=== PATIENT | female | born 1975 | race Caucasian/White ===

== ENCOUNTER 2016-10-04 10:01 | Emergency (ER) | payer OTHER ==
[~2016-10-04] VITALS: Ht 172.7 cm; Wt 94.0 kg
[~2016-10-04 10:01] MED LIST: ACETAMINOPHEN500 MG PO; ANAPROX DS550 M1 PO; ASPIR-LOW81 MG PO; AZITHROMYCIN250 MG PO; AZITHROMYCIN250 MG1 PO; BACTRIM,SEPT1 TABLET PO; BENTYL20 MG PO; CARAFATE1 GM PO; DAILY VITAMIN1 EAC4 PO; ENDOCET 5-3251 EACH PO; FIORICET,ESG1 TABLET PO; FISH OIL 1,0001 EAC7 PO; FISH OIL SOFTG1 EAC1 PO; FLEXERIL10 MG PO; GLYBURIDE2.5 MG PO; IBUPROFEN600 MG PO; IBUPROFEN800 MG PO; KEFLEX500 MG PO; METHYLPREDNISOLO4 M1 PO; MIRALAX17 GM PO; NAPROXEN500 MG PO; NITROSTAT0.4 MG SL; NORCO 5/3251 TABLET PO; ONE-A-DAY WOME1 EAC1 PO; PANTOPRAZOLE SO40 MG PO; PERCOCET 5/31 TABLET PO; PHENERGAN-CODE120 ML PO; PREDNISONE20 MG PO; PRENATAL TABLE1 EAC3 PO; PROTONIX40 MG PO; REGLAN10 MG PO; ROBITUSSIN AC,T10 ML PO; TESSALON PERLE100 MG PO; TOPAMAX100 MG PO; TOPIRAMATE200 MG PO; TYLENOL REGULA325 MG PO; TYLENOL WITH C1 EACH PO; ULTRAM50 MG PO; VENTOLIN HFA18 GM IH; VITAMIN B PO; VITAMIN D31000 UNI2 PO; ZOFRAN ODT4 MG PO; ZOFRAN4 MG PO; ZOMIG PO; ZOMIG5 MG PO; benadryl
[2016-10-04 11:05] LABS: HEMATOCRIT 48.2 % (36.0-46.0); MCH 29.4 PG (29.0-34.0); MCHC 33.2 G/DL (30.0-36.0); MCV 88.6 FL (83-99); MEAN PLAT.VOLUME 10.6 uM^3 (9.5-12.4); PLATELET COUNT 257 K/uL (156-360); RBC DIS.WIDTH-CV 13.2 % (11.8-14.6); RBC DIS.WIDTH-SD 42.7 % (39-53); RED BLOOD COUNT 5.44 M/uL (3.80-5.20); WHITE BLOOD COUNT 10.1 K/uL (4.1-10.2)
[2016-10-04 11:20] LABS: CHLORIDE 105 mEq/L (99-109); POTASSIUM 3.6 mEq/L (3.7-5.4); SODIUM 139 mEq/L (136-147)
[2016-10-04 11:22] LABS: GLUCOSE 99 mg/dL (70-99)
[2016-10-04 11:23] LABS: ANION GAP 10 MEQ/L (2-14)
[2016-10-04 11:24] LABS: TOTAL BILIRUBIN 0.5 mg/dL (0.0-1.0)
[2016-10-04 11:26] LABS: ALKALINE PHOSPHATASE 93 IU/L (3-129); GFR ESTIMATE (CALCULATED) > 59 mL/min/
[2016-10-04 11:27] LABS: UREA NITROGEN (BUN) 9 mg/dL (9-23)
[2016-10-04 11:34] LABS: QUANTITATIVE HCG < 4.0 MIU/ML
[2016-10-04 12:22] LABS: ADD MIUA? YES; BILIRUBIN NEGATIVE; BLOOD NEGATIVE; COLOR YELLOW ((YELLOW)); GLUCOSE (STRIP) NEGATIVE; KETONES NEGATIVE; LEUKOCYTES NEGATIVE; NITRITE NEGATIVE; PROTEIN (STRIP) NEGATIVE; SPECIFIC GRAVITY 1.006 (1.000-1.030); UROBILINOGEN 0.2 MG/DL (0.2-1.0)
[2016-10-04 12:25] LABS: BACTERIA RARE /HPF; EPITHELIAL CELLS 1+ /HPF; MUCUS NONE SEEN /LPF; RED BLOOD CELLS 0-5 /HPF (0-5); UCUL ADDED? NO; WHITE BLOOD CELLS 0-5 /HPF (0-5)
[2016-10-04] MEDS ORDERED: ULTRAM50 MG PO (12:53)
[2016-10-04 13:05] VITALS: BP 126/70
== END 2016-10-04 13:17 | disposition home or self-care (01) ==
LOC: EME 10:01
DX: R10.9 Unspecified abdominal pain (principal); Z87.442 Personal history of urinary calculi; Z87.891 Personal history of nicotine dependence
CPT/HCPCS: 74176; 80053; 81003; 84702; 85027; 99281; 99284; J1885

== ENCOUNTER 2017-02-10 19:54 | Emergency (ER) | payer OTHER ==
[~2017-02-10] VITALS: Ht 172.7 cm; Wt 94.6 kg
[2017-02-10] MEDS ORDERED: FLEXERIL10 MG PO (22:26)
[2017-02-10] MEDS ORDERED: MOTRIN800 MG PO (22:27)
[2017-02-10 22:38] VITALS: BP 152/100
== END 2017-02-10 22:38 | disposition home or self-care (01) ==
LOC: EME 19:54
DX: M62.838 Other muscle spasm (principal); G43.909 Migraine, unspecified, not intractable, without status migrainosus; K21.9 Gastro-esophageal reflux disease without esophagitis; Z87.891 Personal history of nicotine dependence
CPT/HCPCS: 87651 90; 99281; 99284; J1885

== ENCOUNTER 2017-02-28 05:55 | Emergency (ER) | payer OTHER ==
[~2017-02-28] VITALS: Ht 172.7 cm; Wt 94.1 kg
[~2017-02-28 05:55] MED LIST changes: +MOTRIN800 MG PO
[2017-02-28 06:20] LABS: BASOPHIL COUNT 0.1 K/uL (0-0.1); EOSINOPHIL (%) 2.2 % (0-5); EOSINOPHIL COUNT 0.2 K/uL (0-0.3); IMMATURE GRANULOCYTE (%) 0.5 % (0.0-0.7); LYMPHOCYTE COUNT 2.6 K/uL (1.0-2.8); MCHC 34.5 G/DL (30.0-36.0); MCV 86.8 FL (83-99); MEAN PLAT.VOLUME 10.6 uM^3 (9.5-12.4); MONOCYTE (%) 8.6 % (3-12); MONOCYTE COUNT 0.7 K/uL (0-0.8); NEUTROPHIL (%) 57.5 % (45-76); PLATELET COUNT 248 K/uL (156-360); RBC DIS.WIDTH-CV 13.4 % (11.8-14.6); RBC DIS.WIDTH-SD 42.5 % (39-53); RED BLOOD COUNT 5.07 M/uL (3.80-5.20); WHITE BLOOD COUNT 8.7 K/uL (4.1-10.2)
[2017-02-28 07:25] LABS: QUANTITATIVE HCG < 4.0 MIU/ML
[2017-02-28 08:07] LABS: ANION GAP 9 MEQ/L (2-14); CHLORIDE 110 MEQ/L (99-109); POTASSIUM 3.6 MEQ/L (3.7-5.4); SAMPLE HEMOLYSIS CHECK 0; SAMPLE ICTERIC CHECK 0; SAMPLE LIPEMIA CHECK 0; SODIUM 143 MEQ/L (136-147); TOTAL BILIRUBIN 0.3 MG/DL (0.0-1.0)
[2017-02-28 08:13] LABS: ALKALINE PHOSPHATASE 67 IU/L (3-129); GFR ESTIMATE (CALCULATED) > 59 mL/min/; GLUCOSE 94 mg/dL (70-99); LIPASE 24 U/L (1.0-51.0); UREA NITROGEN (BUN) 10 mg/dL (9-23)
[2017-02-28 09:11] LABS: ADD MIUA? NO; BILIRUBIN NEGATIVE; BLOOD NEGATIVE; COLOR YELLOW ((YELLOW)); GLUCOSE (STRIP) NEGATIVE; KETONES NEGATIVE; LEUKOCYTES NEGATIVE; NITRITE NEGATIVE; PROTEIN (STRIP) NEGATIVE; UCUL ADDED? NO; UROBILINOGEN 0.2 MG/DL (0.2-1.0)
[2017-02-28] MEDS ORDERED: TORADOL10 MG PO (09:27)
[2017-02-28] MEDS ORDERED: ZOFRAN ODT4 MG PO (09:27)
[2017-02-28] MEDS ORDERED: NORCO 5/3251 TABLET PO (09:27)
[2017-02-28 09:46] VITALS: BP 120/80
== END 2017-02-28 09:48 | disposition home or self-care (01) ==
LOC: EME 05:55
PROVIDERS: Emergency Medicine
DX: R10.9 Unspecified abdominal pain (principal); R11.2 Nausea with vomiting, unspecified; Z87.442 Personal history of urinary calculi; Z90.49 Acquired absence of other specified parts of digestive tract; Z87.891 Personal history of nicotine dependence
CPT/HCPCS: 74177; 80053; 81003; 83690; 84702; 85025; 87086; 99281; 99285; J2405; J3010; J7030

== ENCOUNTER 2017-03-08 21:32 | Emergency (ER) | payer OTHER ==
[~2017-03-08] VITALS: Ht 172.7 cm; Wt 94.2 kg
[~2017-03-08 21:32] MED LIST changes: +TORADOL10 MG PO
[2017-03-08 22:01] LABS: ADD MIUA? YES; BILIRUBIN NEGATIVE; BLOOD NEGATIVE; COLOR YELLOW ((YELLOW)); GLUCOSE (STRIP) NEGATIVE; KETONES NEGATIVE; LEUKOCYTES NEGATIVE; NITRITE NEGATIVE; PROTEIN (STRIP) NEGATIVE; SPECIFIC GRAVITY 1.013 (1.000-1.030); UROBILINOGEN 0.2 MG/DL (0.2-1.0)
[2017-03-08 22:08] LABS: BACTERIA RARE /HPF; EPITHELIAL CELLS 2+ /HPF; MUCUS NONE SEEN /LPF; RED BLOOD CELLS 0-5 /HPF (0-5); UCUL ADDED? NO; WHITE BLOOD CELLS 0-5 /HPF (0-5)
[2017-03-08 22:37] LABS: HEMATOCRIT 45.7 % (36.0-46.0); MCH 29.4 PG (29.0-34.0); MCHC 33.9 G/DL (30.0-36.0); MCV 86.7 FL (83-99); MEAN PLAT.VOLUME 10.6 uM^3 (9.5-12.4); PLATELET COUNT 277 K/uL (156-360); RBC DIS.WIDTH-CV 13.2 % (11.8-14.6); RBC DIS.WIDTH-SD 41.3 % (39-53); RED BLOOD COUNT 5.27 M/uL (3.80-5.20); WHITE BLOOD COUNT 12.4 K/uL (4.1-10.2)
[2017-03-08 22:45] LABS: CHLORIDE 105 mEq/L (99-109); POTASSIUM 3.9 mEq/L (3.7-5.4); SODIUM 140 mEq/L (136-147)
[2017-03-08 22:47] LABS: GLUCOSE 96 mg/dL (70-99)
[2017-03-08 22:48] LABS: ANION GAP 12 MEQ/L (2-14)
[2017-03-08 22:49] LABS: TOTAL BILIRUBIN 0.3 mg/dL (0.0-1.0)
[2017-03-08 22:51] LABS: ALKALINE PHOSPHATASE 89 IU/L (3-129); GFR ESTIMATE (CALCULATED) > 59 mL/min/
[2017-03-08 22:52] LABS: UREA NITROGEN (BUN) 12 mg/dL (9-23)
[2017-03-08 23:00] LABS: QUANTITATIVE HCG < 4.0 MIU/ML
[2017-03-09 00:44] VITALS: BP 144/91
== END 2017-03-09 00:45 | disposition home or self-care (01) ==
LOC: EME 21:32
DX: R10.9 Unspecified abdominal pain (principal); K21.9 Gastro-esophageal reflux disease without esophagitis; Z87.442 Personal history of urinary calculi; Z90.49 Acquired absence of other specified parts of digestive tract; Z87.891 Personal history of nicotine dependence
CPT/HCPCS: 74176; 80053; 81003; 84702; 85027; 99281; 99284

== ENCOUNTER 2017-05-10 19:39 | Emergency (ER) | payer OTHER ==
[~2017-05-10] VITALS: Ht 172.7 cm; Wt 96.6 kg
[2017-05-10 20:22] LABS: HEMATOCRIT 42.3 % (36.0-46.0); MCH 29.5 PG (29.0-34.0); MCHC 33.8 G/DL (30.0-36.0); MCV 87.4 FL (83-99); MEAN PLAT.VOLUME 10.1 uM^3 (9.5-12.4); PLATELET COUNT 245 K/uL (156-360); RBC DIS.WIDTH-SD 41.5 % (39-53); RED BLOOD COUNT 4.84 M/uL (3.80-5.20); WHITE BLOOD COUNT 10.3 K/uL (4.1-10.2)
[2017-05-10 20:33] LABS: CHLORIDE 105 mEq/L (99-109); POTASSIUM 3.8 mEq/L (3.7-5.4); SODIUM 140 mEq/L (136-147)
[2017-05-10 20:35] LABS: GLUCOSE 91 mg/dL (70-99)
[2017-05-10 20:36] LABS: ANION GAP 13 MEQ/L (2-14)
[2017-05-10 20:39] LABS: GFR ESTIMATE (CALCULATED) > 59 mL/min/
[2017-05-10 20:40] LABS: UREA NITROGEN (BUN) 14 mg/dL (9-23)
[2017-05-10 20:43] LABS: TROP-I INTERPRETATION NEGATIVE; TROPONIN-I < 0.01 ng/mL (0.0-0.30)
[2017-05-10] MEDS ORDERED: PERCOCET 5/31 TABLET PO (21:09)
[2017-05-10] MEDS ORDERED: NAPROSYN500 MG PO (21:09)
[2017-05-10 21:23] VITALS: BP 143/83
== END 2017-05-10 21:35 | disposition home or self-care (01) ==
LOC: EME 19:39
DX: M25.511 Pain in right shoulder (principal); R07.9 Chest pain, unspecified; K21.9 Gastro-esophageal reflux disease without esophagitis; Z87.442 Personal history of urinary calculi; F17.200 Nicotine dependence, unspecified, uncomplicated
CPT/HCPCS: 71020; 80048; 84484; 85027; 93005; 99281; 99284

== ENCOUNTER 2017-06-04 21:45 | Emergency (ER) | payer OTHER ==
[~2017-06-04] VITALS: Ht 172.7 cm; Wt 96.6 kg
[~2017-06-04 21:45] MED LIST changes: +NAPROSYN500 MG PO
[2017-06-04] MEDS ORDERED: FLEXERIL10 MG PO (22:04)
[2017-06-04] MEDS ORDERED: PERCOCET 5/31 TABLET PO (22:04)
[2017-06-04 22:13] VITALS: BP 141/94
== END 2017-06-04 22:14 | disposition home or self-care (01) ==
LOC: EME 21:45
DX: M25.511 Pain in right shoulder (principal); G89.29 Other chronic pain; F17.200 Nicotine dependence, unspecified, uncomplicated
CPT/HCPCS: 99281; 99284

== ENCOUNTER 2017-10-30 18:56 | Emergency (ER) | payer OTHER ==
[~2017-10-30] VITALS: Ht 172.7 cm; Wt 99.4 kg
[2017-10-30 19:29] LABS: HEMATOCRIT 44.3 % (36.0-46.0); HEMOGLOBIN 15.2 G/DL (11.9-15.5); MCH 30.2 PG (29.0-34.0); MCHC 34.3 G/DL (30.0-36.0); MCV 88.1 FL (83-99); PLATELET COUNT 265 K/uL (156-360); RBC DIS.WIDTH-CV 13.2 % (11.8-14.6); RBC DIS.WIDTH-SD 42.5 % (39-53); RED BLOOD COUNT 5.03 M/uL (3.80-5.20); WHITE BLOOD COUNT 12.4 K/uL (4.1-10.2)
[2017-10-30 19:45] LABS: CHLORIDE 105 mEq/L (99-109); POTASSIUM 3.6 mEq/L (3.7-5.4); SODIUM 143 mEq/L (136-147)
[2017-10-30 19:46] LABS: GLUCOSE 92 mg/dL (70-99)
[2017-10-30 19:50] LABS: CREATININE 0.8 mg/dL (0.6-1.3); GFR ESTIMATE (CALCULATED) > 59 mL/min/
[2017-10-30 19:51] LABS: UREA NITROGEN (BUN) 10 mg/dL (9-23)
[2017-10-30 19:53] LABS: TROP-I INTERPRETATION NEGATIVE; TROPONIN-I 0.03 ng/mL (0.0-0.30)
[2017-10-30] MEDS ORDERED: AUGMENTIN875 MG PO (22:22)
[2017-10-30 22:35] VITALS: BP 148/84
== END 2017-10-30 22:35 | disposition home or self-care (01) ==
LOC: EME 18:56
DX: J32.0 Chronic maxillary sinusitis (principal); Z87.442 Personal history of urinary calculi; K21.9 Gastro-esophageal reflux disease without esophagitis; Z90.49 Acquired absence of other specified parts of digestive tract; Z98.51 Tubal ligation status; F17.200 Nicotine dependence, unspecified, uncomplicated
CPT/HCPCS: 70450; 71046; 80048; 84484; 85027; 93005; 99281; 99284; J7030

== ENCOUNTER 2017-12-31 12:38 | Emergency (ER) | payer OTHER ==
[~2017-12-31] VITALS: Ht 172.7 cm; Wt 99.2 kg
[~2017-12-31 12:38] MED LIST changes: +AUGMENTIN875 MG PO
[2017-12-31] MEDS ORDERED: TRAMADOL HCL50 MG PO (13:54)
[2017-12-31] MEDS ORDERED: LIDODERM 5% P1 PATCH TD (13:54)
[2017-12-31] MEDS ORDERED: FLEXERIL10 MG PO (13:54)
[2017-12-31] MEDS ORDERED: NAPROSYN500 MG PO (13:54)
[2017-12-31 14:02] VITALS: BP 117/88
== END 2017-12-31 14:02 | disposition home or self-care (01) ==
LOC: EME 12:38
DX: S46.911A Strain of unspecified muscle, fascia and tendon at shoulder and upper arm level, right arm, initial encounter (principal); Z98.890 Other specified postprocedural states; Y93.E3 Activity, vacuuming; Y99.0 Civilian activity done for income or pay; M85.88 Other specified disorders of bone density and structure, other site; F17.210 Nicotine dependence, cigarettes, uncomplicated
CPT/HCPCS: 73030; 99281; 99283; J1885

== ENCOUNTER 2018-02-08 04:55 | Emergency (ER) | payer OTHER ==
[~2018-02-08] VITALS: Ht 172.7 cm; Wt 98.0 kg
[~2018-02-08 04:55] MED LIST changes: +LIDODERM 5% P1 PATCH TD; +TRAMADOL HCL50 MG PO
[2018-02-08 05:42] LABS: ALBUMIN 4.5 g/dL (3.2-4.8)
[2018-02-08 05:43] LABS: CHLORIDE 104 mEq/L (99-109); POTASSIUM 3.6 mEq/L (3.7-5.4); SODIUM 140 mEq/L (136-147)
[2018-02-08 05:45] LABS: GLUCOSE 111 mg/dL (70-99); HEMATOCRIT 47.7 % (36.0-46.0); HEMOGLOBIN 16.2 G/DL (11.9-15.5); MCH 29.7 PG (29.0-34.0); MCV 87.5 FL (83-99); PLATELET COUNT 245 K/uL (156-360); RBC DIS.WIDTH-CV 13.1 % (11.8-14.6); RBC DIS.WIDTH-SD 41.9 % (39-53); RED BLOOD COUNT 5.45 M/uL (3.80-5.20); TOTAL PROTEIN 7.8 g/dL (6.4-8.3); WHITE BLOOD COUNT 8.1 K/uL (4.1-10.2)
[2018-02-08 05:47] LABS: TOTAL BILIRUBIN 0.4 mg/dL (0.0-1.0)
[2018-02-08 05:48] LABS: ALKALINE PHOSPHATASE 92 IU/L (3-129)
[2018-02-08 05:49] LABS: CREATININE 0.8 mg/dL (0.6-1.3); GFR ESTIMATE (CALCULATED) > 59 mL/min/
[2018-02-08 05:50] LABS: AST (GOT) 15 IU/L (2-34); UREA NITROGEN (BUN) 10 mg/dL (9-23)
[2018-02-08 05:51] LABS: ALT (GPT) 11 IU/L (3-49)
[2018-02-08 05:52] LABS: LIPASE 21 U/L (1.0-51.0)
[2018-02-08 05:59] LABS: QUANTITATIVE HCG < 4.0 MIU/ML
[2018-02-08 06:07] VITALS: BP 115/77
[2018-02-08 06:17] LABS: APPEARANCE CLEAR ((CLEAR)); BILIRUBIN NEGATIVE; BLOOD NEGATIVE; COLOR YELLOW ((YELLOW)); GLUCOSE (STRIP) NEGATIVE; KETONES NEGATIVE; LEUKOCYTES NEGATIVE; NITRITE NEGATIVE; PROTEIN (STRIP) NEGATIVE; SPECIFIC GRAVITY 1.016 (1.000-1.030); UCUL ADDED? NO; UROBILINOGEN 0.2 MG/DL (0.2-1.0)
== END 2018-02-08 06:38 | disposition home or self-care (01) ==
LOC: EME 04:55
PROVIDERS: Emergency Medicine
DX: R10.11 Right upper quadrant pain (principal); N20.0 Calculus of kidney; K42.9 Umbilical hernia without obstruction or gangrene; Z87.442 Personal history of urinary calculi; Z90.49 Acquired absence of other specified parts of digestive tract; F17.200 Nicotine dependence, unspecified, uncomplicated
CPT/HCPCS: 74176; 80053; 81003; 83690; 84702; 85027; 99281; 99283; J1885; J2270; J2405

== ENCOUNTER 2018-02-16 23:18 | Emergency (ER) | payer OTHER ==
[~2018-02-16] VITALS: Ht 172.7 cm; Wt 98.1 kg
[2018-02-17 01:06] LABS: HEMATOCRIT 44.4 % (36.0-46.0); HEMOGLOBIN 15.4 G/DL (11.9-15.5); MCH 30.1 PG (29.0-34.0); MCHC 34.7 G/DL (30.0-36.0); MCV 86.7 FL (83-99); PLATELET COUNT 237 K/uL (156-360); RBC DIS.WIDTH-SD 40.9 % (39-53); RED BLOOD COUNT 5.12 M/uL (3.80-5.20); WHITE BLOOD COUNT 11.2 K/uL (4.1-10.2)
[2018-02-17 01:37] LABS: CHLORIDE 104 mEq/L (99-109); POTASSIUM 3.6 mEq/L (3.7-5.4); SODIUM 141 mEq/L (136-147)
[2018-02-17 01:39] LABS: GLUCOSE 104 mg/dL (70-99)
[2018-02-17 01:42] LABS: CREATININE 0.8 mg/dL (0.6-1.3); GFR ESTIMATE (CALCULATED) > 59 mL/min/
[2018-02-17 01:43] LABS: UREA NITROGEN (BUN) 7 mg/dL (9-23)
[2018-02-17] MEDS ORDERED: IMITREX100 MG PO (02:19)
[2018-02-17 03:01] VITALS: BP 115/84
== END 2018-02-17 03:05 | disposition home or self-care (01) ==
LOC: EME 23:18
PROVIDERS: Emergency Medicine
DX: G43.909 Migraine, unspecified, not intractable, without status migrainosus (principal); E87.6 Hypokalemia; R11.2 Nausea with vomiting, unspecified; E78.5 Hyperlipidemia, unspecified; I10 Essential (primary) hypertension; K21.9 Gastro-esophageal reflux disease without esophagitis; Z87.442 Personal history of urinary calculi; F17.200 Nicotine dependence, unspecified, uncomplicated
CPT/HCPCS: 80048; 85027; 99281; 99285; J1200; J1885; J2765; J3030; J7030